=== PATIENT | male | born 1965 | race Caucasian/White ===

== ENCOUNTER 2019-12-24 18:09 | Emergency (ER) | payer OTHER ==
[~2019-12-24] VITALS: Ht 190.5 cm; Wt 70.3 kg
[2019-12-24 18:40] VITALS: Ht 190.5 cm; Wt 70.3 kg
[2019-12-24 19:45] LABS: PLATELET COUNT 433 x10^3mcL (130-400)
[2019-12-24 19:48] LABS: CALCIUM 11.1 mg/dL (8.5-10.1); CARBON DIOXIDE 27.7 mmol/L (21-32); CHLORIDE SERUM 100 mmol/L (98-107); CREATININE SERUM 0.7 mg/dL (0.7-1.3); GFR1 > 60 mL/min; GLUCOSE SERUM 151 mg/dL (74-106); POTASSIUM SERUM 4.1 mmol/L (3.5-5.1); SODIUM SERUM 134 mmol/L (136-145)
[2019-12-24 19:53] LABS: ALKALINE PHOSPHATASE 84 U/L (46-116); ALT/SGPT 21 U/L (16-63); AST/SGOT 14 U/L (15-37); BILIRUBIN TOTAL 0.3 mg/dL (0.20-1.00); MAGNESIUM 2.3 mg/dL (1.8-2.4); TOTAL PROTEIN, SERUM 7.7 g/dL (6.4-8.2)
[2019-12-24 19:58] LABS: ALBUMIN 2.6 g/dL (3.4-5.0)
[2019-12-25 00:26] VITALS: BP 113/78
== END 2019-12-25 01:25 | disposition left against medical advice (07) ==
LOC: ED 18:09
PROVIDERS: Emergency Medicine
DX: K12.2 Cellulitis and abscess of mouth (principal); M27.2 Inflammatory conditions of jaws
CPT/HCPCS: J0561; J2270; J2540; J2543; J3370; J3490